=== PATIENT | male | born 1990 | race African-American/Black ===

== ENCOUNTER 2020-01-25 10:00 | Emergency (ER) | payer OTHER ==
[~2020-01-25] VITALS: Ht 182.9 cm; Wt 108.9 kg
[2020-01-25 10:04] VITALS: BP 143/91
[2020-01-25] MEDS ORDERED: LIDOCAINE/EPI 1% 1:100000 20 ML VIAL INJ ONE ×2 (10:22→10:25)
[2020-01-25] MEDS ORDERED: KETOROLAC 60 MG/2 ML VIAL IM ONE (10:25)
[2020-01-25 11:12] VITALS: BP 138/82
== END 2020-01-25 11:11 | disposition home or self-care (01) ==
LOC: MED 10:00
DX: L02.31 Cutaneous abscess of buttock (principal); F17.200 Nicotine dependence, unspecified, uncomplicated
CPT/HCPCS: 10060; 96372; 99284; J1885; J2001

== ENCOUNTER 2020-01-26 17:00 | Emergency (ER) | payer OTHER ==
[~2020-01-26] VITALS: Ht 180.3 cm; Wt 118.8 kg
[2020-01-26 17:04] VITALS: BP 131/50
--- NOTE | 2020-01-26 17:09 | NUR ---
PT AMBULATED TO ER BED 04
--- NOTE | 2020-01-26 17:21 | NUR ---
[facility]
--- NOTE | 2020-01-26 17:25 | NUR ---
WAS SEEN YESTERDAY FOR LEFT BUTTOCK ABSCESS. I&D AND PACKING OF WOUND. PT STATES PACKING FELL OUT TODAY. PT AWAKE , ALERT , AFIBRILE , AMBULATORY WITH S/P I AND D OF LF BUTTOCKS .CLEAN NO DISCHARGE ,NO TENDERNESS IN WOUND. HX- DENIES
--- NOTE | 2020-01-26 17:43 | NUR ---
Patient discharged with v/s stable. Written and verbal after care instructions given and explained. Patient alert, oriented and verbalized understanding of instructions. Ambulatory with steady gait. All questions addressed prior to discharge. ID band removed. Patient advised to follow up with PMD. Rx of hydrocodone given. Patient educated on indication of medication including possible reaction and side effects. Opportunity to ask questions provided and answered.
--- NOTE | 2020-01-26 17:46 | NUR ---
applied dressing to lowerright buttock without any issues
== END 2020-01-26 17:43 | disposition home or self-care (01) ==
LOC: MED 17:00
DX: L02.31 Cutaneous abscess of buttock (principal); Z48.01 Encounter for change or removal of surgical wound dressing
CPT/HCPCS: 99283; J7060